=== PATIENT | male | born 1985 ===

== ENCOUNTER 2020-02-23 12:07 | Outpatient (REF) | payer BC, SELFPAY ==
[2020-02-27 06:24] LABS: SARS-CoV-2 RNA Undetected (Undetected); SARS-CoV-2 Specimen Source Nasal
== END 2020-02-23 12:27 ==
LOC: NCHCN 12:07
PROVIDERS: PCP Family Medicine; Visit Provider Family Medicine
DX: R05 Cough (principal)
CPT/HCPCS: U0003

== ENCOUNTER 2021-07-08 14:36 | Outpatient (REF) | payer BC, SELFPAY ==
[2021-07-08 16:36] LABS: Anion Gap 8.3 mmol/L (3-11); BUN 9 mg/dL (7-18); CO2 29.7 mmol/L (21.0-32.0); CREATININE 0.8 mg/dL (0.70-1.30); Calcium 9.3 mg/dL (8.5-10.1); Calculated LDL 92 mg/dL (<100); Chloride 104 mmol/L (98-107); Cholesterol 185 mg/dL (<200); Glucose 86 mg/dL (74-106); HDL Cholesterol 82 mg/dL (40-60); Potassium 3.7 mmol/L (3.5-5.1); Sodium 142 mmol/L (136-145); Triglyceride 58 mg/dL (<150)
[2021-07-09 10:28] LABS: HIV-1/2 Ag & Ab Screen Negative (Negative)
[2021-07-09 10:33] LABS: Hepatitis C Ab w Rflx HCV PCR Negative (Negative)
== END 2021-07-08 14:37 | disposition home or self-care (01) ==
LOC: NCHCN 14:36
PROVIDERS: PCP Family Medicine; Visit Provider Nurse Practitioner Family
DX: I10 Essential (primary) hypertension (principal); Z11.4 Encounter for screening for human immunodeficiency virus [HIV]; Z11.59 Encounter for screening for other viral diseases; Z13.220 Encounter for screening for lipoid disorders
CPT/HCPCS: 80048; 80061; 86803; 87389